=== PATIENT | male | born 1980 | race Two or more races ===

== ENCOUNTER 2019-05-02 09:58 | Outpatient (CLI) | payer OTHER ==
--- NOTE | 2019-05-02 12:38 | Diagnostic Imaging Report ---
Indication: Chronic intractable headache status post head trauma one month ago Technique: sagittal T1 fast spin echo, axial T1 and T2 FLAIR PROPELLER, axial T2 FS PROPELLER, T2* GRE, axial diffusion weighted images, post contrast axial sagittal and coronal T1 FLAIR PROPELLER images. ADC and exponential ADC maps generated Comparison: Findings: . No abnormal areas of restricted diffusion to suggest acute infarction. No acute hemorrhage or edema. No mass effect nor midline shift. No abnormal contrast enhancement. Normal size ventricles and extra axial CSF spaces. Visualized orbits and sinuses are unremarkable. The vascular flow voids are preserved.. Impression: Negative
== END 2019-05-02 11:58 | disposition home or self-care (01) ==
LOC: MRI 09:58
DX: R51 Headache (principal)
CPT/HCPCS: 70553; A9585